=== PATIENT | male | born 1980 | race African-American/Black ===

== ENCOUNTER 2021-01-25 09:33 | Emergency (ER) | payer OTHER ==
[~2021-01-25] VITALS: Ht 172.7 cm; Wt 102.0 kg
[2021-01-25 09:43] VITALS: BP 136/74
--- NOTE | 2021-01-25 10:29 | PHYS DOC ---
Past History Past Surgical History: No Surgical History (JAZMYN PARDO APRN) General Adult EDM: Chief Complaint: UPPER EXTREMITY PAIN HPI: HPI: Patient is a 40-year-old male being seen in the ER today for right bicep injury. Patient reports that he was working out at work and was lifting a tire and felt a pop in his right bicep. Patient immediately felt pain and had limited range of motion due to back pain. Patient rates his pain 8 out of 10. No treatment prior to arrival. Patient denies any decreased sensation to his extremity, shoulder joint, elbow joint pain, wrist joint pain. (JAZMYN PARDO APRN) Review of Systems: Review of Systems: 14 body systems of the review of systems have been reviewed. See HPI for pertinent positive and negative responses, otherwise all other systems are negative, nonpertinent or noncontributory (JAZMYN PARDO APRN) Allergies: Allergies: Allergies Coded Allergies Type Severity Reaction Last Updated Verified No Known Drug Allergies 01/25/21 No (JAZMYN PARDO APRN) Physical Exam: PE: Constitutional: Well developed, well nourished, no acute distress, non-toxic appearance. [] HENT: Normocephalic, atraumatic Eyes: PERRL, conjunctiva normal, no discharge. [] Neck: Normal range of motion, no tenderness, supple, no stridor. [] Cardiovascular: Normal peripheral perfusion Lungs & Thorax: Normal work of breathing, no tachypnea Skin: Warm, dry, no erythema, no rash, no wounds. [] Back: Normal range of motion Extremities: no cyanosis, no clubbing, ROM intact of right shoulder, elbow, wrist, deformity to right bicep, positive speeds test, pain with palpation to bicep, neuro intact, no edema. [] Neurologic: Alert and oriented X 3, normal motor function, normal sensory function, no focal deficits noted. [] Psychologic: Affect normal, judgement normal, mood normal. [] (JAZMYN PARDO APRN) Current Patient Data: Vital Signs: Vital Signs Date Time Temp Pulse Resp B/P (MAP) Pulse Ox O2 Delivery O2 Flow Rate FiO2 01/25/21 09:43 98.0 74 16 136/74 96 (JAZMYN PARDO APRN) EKG: EKG: [] (JAZMYN PARDO APRN) Radiology/Procedures: Radiology/Procedures: [] (JAZMYN PARDO APRN) Heart Score: C/O Chest Pain: No Risk Factors: Risk Factors: DM, Current or recent (<one month) smoker, HTN, HLP, family history of CAD, obesity. Risk Scores: Score 0 - 3: 2.5% MACE over next 6 weeks - Discharge Home Score 4 - 6: 20.3% MACE over next 6 weeks - Admit for Clinical Observation Score 7 - 10: 72.7% MACE over next 6 weeks - Early Invasive Strategies (JAZMYN PARDO APRN) Course & Med Decision Making: Course & Med Decision Making Pertinent Labs and Imaging studies reviewed. (See chart for details) [] Patient is a 40-year-old male being seen for possible right bicep tear. Ultrasound was unavailable to perform a musculoskeletal ultrasound. I spoke with orthopedic group at and discussed patient's case with them. They agreed to see patient in the clinic next week. Patient notified and agreeable to care plan. Patient given sling for comfort. (JAZMYN PARDO APRN) Dragon Disclaimer: Dragon Disclaimer: This electronic medical record was generated, in whole or in part, using a voice recognition dictation system. (JAZMYN PARDO APRN) Dragon Disclaimer: I have participated in the care of this patient and I have reviewed and agree with all pertinent clinical information above including history, exam, and recommendations. (MERY NESBITT DO) Departure Departure: Impression: Primary Impression: Biceps tendon rupture Qualified Codes: S46.211A - Strain of muscle, fascia and tendon of other parts of biceps, right arm, initial encounter Disposition: HOME / SELF CARE / HOMELESS Condition: GOOD Referrals: PCP,UNKNOWN (PCP) Patient Instructions: Biceps Tendon Disruption (Distal) with [facility] Additional Instructions: You were seen in the ER today for right bicep pain following an injury. It is likely that you have ruptured your right bicep tendon. As we discussed, an ultrasound cannot be performed in the ER. Your arm was placed in a sling for comfort. You can also take Tylenol or ibuprofen and apply ice if needed. I spoke with Dr. Pope with the orthopedic surgeon group. He would like to see you in the office within the next week. You can call his office at [phone] to set up an appointment. Please call when you are discharged from the ER. If your pain worsens or you notice decreased sensation in your arm, decreased range of motion please return to the ER. EMERGENCY DEPARTMENT GENERAL DISCHARGE INSTRUCTIONS Thank you for coming to [facility] (ED) today and trusting us with you care. We trust that you had a positivie experience in our Emergency Department. If you wish to speak to the department management, you may call the director at [phone]. YOUR FOLLOW UP INSTRUCTIONS ARE FOLLOWS: 1. Do you have a private Doctor? If you do not have a private doctor, please ask for a resource list of physicians or clinics that may be able to assist you with follow up care. 2. The Emergency Physician has interpreted your x-rays. The X-Ray specialist will also review them. If there is a change in the findings, you will be notified in 48 hours when at all possible. 3. A lab test or culture has been done, your results will be reviewed and you will be notified if you need a change in treatment. ADDITIONAL INSTRUCTIONS AND INFORMATION: 1. Your care today has been supervised by a physician who is specially trained in emergency care. Many problems require more than one evaluation for a complete diagnosis and treatment. We recommend that you schedule your follow up appointment as recommended to ensure complete treatment of you illness or injury. If you are unable to obtain follow up care and continue to have a problem, or if your condition worsens, we recommend that you return to the ED. 2. We are not able to safely determine your condition over the phone nor are we able to give sound medical advice over the phone. For these safety reasons, if you call for medical advice we will ask you to come to the ED for further evaluation. 3. If you have any questions regarding these discharge instructions please call the ED at [phone]. SAFETY INFORMATION: In the interest of safety, wellness, and injury prevention; we encourage you to wear your sealbelt, if you smoke; quite smoking, and we encourage family to use a protec tive helmet for bicycling and other sporting events that present an increased risk for head injury. IF YOUR SYMPTOMS WORSEN OR NEW SYMPTOMS DEVELOP, OR YOU HAVE CONCERNS ABOUT YOUR CONDITION; OR IF YOUR CONDITION WORSENS WHILE YOU ARE WAITING FOR YOUR FOLLOW UP APPOINTMENT; EITHER CONTACT YOUR PRIMARY CARE DOCTOR, THE PHYSICIAN WHOSE NAME AND NUMBER YOU WERE GIVEN, OR RETURN TO THE ED IMMEDIATELY. JAZMYN PARDO APRN Jan 25, 2021 10:29 MERY NESBITT DO Jan 25, 2021 13:11
== END 2021-01-25 12:27 | disposition home or self-care (01) ==
LOC: ER 09:33
DX: S46.211A Strain of muscle, fascia and tendon of other parts of biceps, right arm, initial encounter (principal); X50.0XXA Overexertion from strenuous movement or load, initial encounter; Y93.89 Activity, other specified; Y92.89 Other specified places as the place of occurrence of the external cause; Y99.8 Other external cause status
CPT/HCPCS: 99282